=== PATIENT | male | born 1950 | race Caucasian/White ===

== ENCOUNTER 2018-05-10 04:29 | Emergency (ER) | payer MEDICARE, OTHER ==
[~2018-05-10] VITALS: Ht 190.5 cm; Wt 97.5 kg
[2018-05-10 05:02] LABS: BASOPHILS # (AUTO) 0.1 10^3/uL (0.0-0.1); BASOPHILS % (AUTO) 1 % (0-10); EOSINOPHILS # (AUTO) 0.1 10^3/uL (0.0-0.3); EOSINOPHILS % (AUTO) 1 % (0-10); HEMATOCRIT 47 % (40-54); HEMOGLOBIN 16.1 G/DL (13.3-17.7); LYMPHOCYTES # (AUTO) 1.4 X 10^3 (1.0-4.0); LYMPHOCYTES % (AUTO) 15 % (12-44); MEAN CORPUSCULAR HEMOGLOBIN 29 PG (25-34); MEAN CORPUSCULAR HGB CONC 35 G/DL (32-36); MEAN CORPUSCULAR VOLUME 85 FL (80-99); MEAN PLATELET VOLUME 9.8 FL (7.4-10.4); MONOCYTES # (AUTO) 1.1 X 10^3 (0.0-1.0); MONOCYTES % (AUTO) 11 % (0-12); NEUTROPHILS # (AUTO) 6.8 X 10^3 (1.8-7.8); NEUTROPHILS % (AUTO) 72 % (42-75); PLATELET COUNT 250 10^3/uL (130-400); RED CELL DISTRIBUTION WIDTH 13.8 % (10.0-14.5); WHITE BLOOD COUNT 9.3 10^3/uL (4.3-11.0)
[2018-05-10 05:08] LABS: BILIRUBIN,URINE NEGATIVE (NEGATIVE); CLARITY,URINE CLEAR; COLOR,URINE YELLOW; GLUCOSE, URINE (UA) 4+ (NEGATIVE); KETONES,URINE 3+ (NEGATIVE); LEUKOCYTE ESTERASE ,URINE NEGATIVE (NEGATIVE); NITRITE,URINE NEGATIVE (NEGATIVE); PH,URINE 5 (5-9); PROTEIN,URINE 1+ (NEGATIVE); UROBILINOGEN,URINE NORMAL (NORMAL)
[2018-05-10 05:32] LABS: BACTERIA,URINE NEGATIVE /HPF; SQUAMOUS EPITHELIAL CELL,UR RARE /HPF
[2018-05-10 05:37] LABS: ALANINE AMINOTRANSFERASE 81 U/L (0-55); ALBUMIN 4.6 GM/DL (3.2-4.5); ALKALINE PHOSPHATASE 118 U/L (40-136); BILIRUBIN,TOTAL 1.4 MG/DL (0.1-1.0); BUN/CREATININE RATIO 15; CALCIUM 9.9 MG/DL (8.5-10.1); CARBON DIOXIDE 21 MMOL/L (21-32); CHLORIDE 99 MMOL/L (98-107); CREATININE SERUM 0.96 MG/DL (0.60-1.30); GFR ESTIMATED > 60; GLUCOSE 350 MG/DL (70-105); MAGNESIUM 2.1 MG/DL (1.8-2.4); POTASSIUM 4.1 MMOL/L (3.6-5.0); SODIUM 135 MMOL/L (135-145); TOTAL PROTEIN 7.2 GM/DL (6.4-8.2)
[2018-05-10 05:41] LABS: AMPHETAMINE SCREEN, URINE NEGATIVE (NEGATIVE); BARBITURATE SCREEN URINE NEGATIVE (NEGATIVE); BENZODIAZEPINES SCREEN URINE NEGATIVE (NEGATIVE); CANNABINOID SCREEN, URINE NEGATIVE (NEGATIVE); COCAINE SCREEN URINE NEGATIVE (NEGATIVE); METHADONE STAT NEGATIVE (NEGATIVE); METHAMPHETAMINE SCREEN URINE S NEGATIVE (NEGATIVE); OPIATE SCREEN URINE NEGATIVE (NEGATIVE); OXYCODONE STAT NEGATIVE (NEGATIVE); PROPOXYPHENE STAT NEGATIVE (NEGATIVE); TRICYCLIC ANTIDEPRESSANTS SCRE NEGATIVE (NEGATIVE)
[2018-05-10] MEDS ORDERED: RT-ALBUTEROL/IPRATROPIUM 3 ML (DUONEB) VIAL INH ONE (05:45)
[2018-05-10 05:57] LABS: TSH (THYROID ANALYZER) 2.05 UIU/ML (0.35-4.94)
--- NOTE | 2018-05-10 06:00 | ED General ---
General Chief Complaint: Altered Mental Status Stated Complaint: POSSIBLE BLOOD SUGAR ISSUES Nursing Triage Note: Patient was brought in by [facility] to get himself checked out, for possible blood sugar issues. When asking patient questions, he makes a joke or pauses for a second to answer. Pt was broke down on the side of the road when the lead project engineer stopped. Pt thinks he is at [facility], but got age, where he lives and month correct. Pt appeared confused when the officer arrived on scene. Pt is a diabetic and stated the last time he checked his blood sugar was yesterday morning. Nursing Sepsis Screen: No Definite Risk Source of Information: Patient Exam Limitations: No Limitations (ISAIAS DIALLO MD) History of Present Illness Date Seen by Provider: May 10, 2018 Time Seen by Provider: 04:32 Initial Comments This 67-year-old gentleman is brought to the emergency room by a [facility]'s deputy because of confusion. The officer found him pulled over on the side of the road and noted that he was quite confused. The patient is from [place], [place] and thought he was on his way to [place], [place] which [place]. He thought he was in [place] at the moment. His phone is presently not working. Patient has diabetes, heart disease, and hypertension. He is wheezing slightly but denies COPD. He denies any alcohol or drug use. He does know his age and the month but is disoriented to location. When confronted with questions he has difficulty answering, he makes jokes to cover for his confusion. He is ambulatory and does not appear to have any focal neurologic deficits. He does admit to a mild cough recently. He denies any chest pain. (ISAIAS DIALLO MD) Allergies and Home Medications Allergies Coded Allergies: No Known Drug Allergies (Unverified , 05/10/18) Patient Home Medication List Home Medication List Reviewed: Yes (ISAIAS DIALLO MD) Review of Systems Review of Systems Constitutional: no symptoms reported EENTM: no symptoms reported Respiratory: see HPI Cardiovascular: no symptoms reported Gastrointestinal: no symptoms reported Genitourinary: no symptoms reported Musculoskeletal: no symptoms reported Skin: no symptoms reported Psychiatric/Neurological: See HPI Hematologic/Lymphatic: No Symptoms Reported (ISAIAS DIALLO MD) Past Vkjfjmc-Mmyfnv-Owekys Hx Past Med/Social Hx: Reviewed and Corrections made (ISAIAS DIALLO MD) Patient Social History Alcohol Use: Denies Use Recreational Drug Use: No Recent Foreign Travel: No Contact w/Someone Who Travel: No Recent Infectious Disease Expo: No Recent Hopitalizations: No (DENIES) Physical Abuse: No Sexual Abuse: No Mistreated: No Fear: No (ISAIAS DIALLO MD) Seasonal Allergies Seasonal Allergies: No (DENIES) (ISAIAS DIALLO MD) Past Medical History Surgeries: No (DENIES) Respiratory: No (DENIES) Cardiac: Yes Coronary Artery Disease, Hypertension Neurological: No (DENIES) Genitourinary: No (DENIES) Gastrointestinal: No (DENIES) Musculoskeletal: No (DENIES) Endocrine: Yes Diabetes, Non-Insulin dep HEENT: No (DENIES) Cancer: No (DENIES) Psychosocial: No (DENIES) Integumentary: No (DENIES) Blood Disorders: No (DENIES) (ISAIAS DIALLO MD) Physical Exam Vital Signs Vital Signs - First Documented 05/10/18 05/10/18 05:00 05:48 Temp 97.6 Pulse 112 Resp 20 B/P (MAP) 138/88 (105) Pulse Ox 93 O2 Delivery Room Air O2 Flow Rate 2.00 (ESAU WANG) Vital Signs Capillary Refill : Less Than 3 Seconds (ISAIAS DIALLO MD) Height, Weight, BMI Height: 6'3.00" Weight: 215lbs. 0oz. 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 Norm as Tested, Other (disoriented to place) Skin: Normal Color, Warm/Dry (ISAIAS DIALLO MD) Progress/Results/Core Measures Suspected Sepsis Recent Fever Within 48 Hours: No Infection Criteria Present: None New/Unexplained Altered Menta: No Sepsis Screen: No Definite Risk SIRS Temperature:97.6 Pulse: 112 Respiratory Rate: 20 Laboratory Tests 05/10/18 04:53: White Blood Count 9.3 Blood Pressure 138 /88 Mean: 105 Laboratory Tests 05/10/18 04:53: Creatinine 0.96, Platelet Count 250, Total Bilirubin 1.4H (ISAIAS DIALLO MD) Results/Orders Lab Results Laboratory Tests Test 05/10/18 04:37 05/10/18 04:53 05/10/18 05:00 05/10/18 08:47 Range/Units Glucometer 305 H 313 H 70-110 MG/DL White Blood Count 9.3 4.3-11.0 10^3/uL Red Blood Count 5.48 4.35-5.85 10^6/uL Hemoglobin 16.1 13.3-17.7 G/DL Hematocrit 47 40-54 % Mean Corpuscular Volume 85 80-99 FL Mean Corpuscular Hemoglobin 29 25-34 PG Mean Corpuscular Hemoglobin Concent 35 32-36 G/DL Red Cell Distribution Width 13.8 10.0-14.5 % Platelet Count 250 130-400 10^3/uL Mean Platelet Volume 9.8 7.4-10.4 FL Neutrophils (%) (Auto) 72 42-75 % Lymphocytes (%) (Auto) 15 12-44 % Monocytes (%) (Auto) 11 0-12 % Eosinophils (%) (Auto) 1 0-10 % Basophils (%) (Auto) 1 0-10 % Neutrophils # (Auto) 6.8 1.8-7.8 X 10^3 Lymphocytes # (Auto) 1.4 1.0-4.0 X 10^3 Monocytes # (Auto) 1.1 H 0.0-1.0 X 10^3 Eosinophils # (Auto) 0.1 0.0-0.3 10^3/uL Basophils # (Auto) 0.1 0.0-0.1 10^3/uL D-Dimer 0.37 0.00-0.49 UG/ML Sodium Level 135 135-145 MMOL/L Potassium Level 4.1 3.6-5.0 MMOL/L Chloride Level 99 98-107 MMOL/L Carbon Dioxide Level 21 21-32 MMOL/L Anion Gap 15 H 5-14 MMOL/L Blood Urea Nitrogen 14 7-18 MG/DL Creatinine 0.96 0.60-1.30 MG/DL Estimat Glomerular Filtration Rate > 60 BUN/Creatinine Ratio 15 Glucose Level 350 H 70-105 MG/DL Calcium Level 9.9 8.5-10.1 MG/DL Corrected Calcium 8.5-10.1 MG/DL Magnesium Level 2.1 1.8-2.4 MG/DL Total Bilirubin 1.4 H 0.1-1.0 MG/DL Aspartate Amino Transf (AST/SGOT) 41 H 5-34 U/L Alanine Aminotransferase (ALT/SGPT) 81 H 0-55 U/L Alkaline Phosphatase 118 40-136 U/L Troponin I < 0.028 <0.028 NG/ML B-Type Natriuretic Peptide < 10.0 <100.0 PG/ML Total Protein 7.2 6.4-8.2 GM/DL Albumin 4.6 H 3.2-4.5 GM/DL TSH [place] Testing 2.05 0.35-4.94 UIU/ML Serum Alcohol < 10 <10 MG/DL Urine Color YELLOW Urine Clarity CLEAR Urine pH 5 5-9 Urine Specific [place] 1.020 1.016-1.022 Urine Protein 1+ H NEGATIVE Urine Glucose (UA) 4+ H NEGATIVE Urine Ketones 3+ H NEGATIVE Urine Nitrite NEGATIVE NEGATIVE Urine Bilirubin NEGATIVE NEGATIVE Urine Urobilinogen NORMAL NORMAL MG/DL Urine Leukocyte Esterase NEGATIVE NEGATIVE Urine RBC (Auto) NEGATIVE NEGATIVE Urine RBC NONE /HPF Urine WBC NONE /HPF Urine Squamous Epithelial Cells RARE /HPF Urine Crystals NONE /LPF Urine Bacteria NEGATIVE /HPF Urine Casts NONE /LPF Urine Mucus NEGATIVE /LPF Urine Culture Indicated NO Urine Opiates Screen NEGATIVE NEGATIVE Urine Oxycodone Screen NEGATIVE NEGATIVE Urine Methadone Screen NEGATIVE NEGATIVE Urine Propoxyphene Screen NEGATIVE NEGATIVE Urine Barbiturates Screen NEGATIVE NEGATIVE Ur Tricyclic Antidepressants Screen NEGATIVE NEGATIVE Urine Phencyclidine Screen NEGATIVE NEGATIVE Urine Amphetamines Screen NEGATIVE NEGATIVE Urine Methamphetamines Screen NEGATIVE NEGATIVE Urine Benzodiazepines Screen NEGATIVE NEGATIVE Urine Cocaine Screen NEGATIVE NEGATIVE Urine Cannabinoids Screen NEGATIVE NEGATIVE (ESAU WANG) Micro Results Microbiology 05/10/18 Influenza Types A,B Antigen (DENISE) - Final, Complete (ESAU WANG) My Orders Orders - ESAU WANG Cho 60g/M 3snack (16-2000 Rivas) (05/10/18 Breakfast) Insulin (Regular) Human (Humulin R (Per (05/10/18 07:15) Accucheck Stat ONCE (05/10/18 08:00) Ct Head Wo (05/10/18 07:38) Influenza A And B Antigens (05/10/18 07:42) (ESAU WANG) Medications Given in ED Current Medications Medications Dose Ordered Sig/Kristian Route Start Time Stop Time Status Last Admin Dose Admin Albuterol/ Ipratropium 3 ml ONCE ONCE INH 05/10/18 05:45 05/10/18 05:46 DC 05/10/18 05:48 3 ML Insulin Human Regular 7 unit ONCE ONCE SC 05/10/18 07:15 05/10/18 07:16 DC 05/10/18 07:22 7 UNIT (ESAU WANG) Vital Signs/I&O 05/10/18 05/10/18 05:00 05:48 Temp 97.6 Pulse 112 Resp 20 B/P (MAP) 138/88 (105) Pulse Ox 93 94 O2 Delivery Room Air Nasal Cannula O2 Flow Rate 2.00 (ESAU WANG) Vital Signs/I&O Capillary Refill : Less Than 3 Seconds (ISAIAS DIALLO MD) Blood Pressure Mean: 105 Point of Care Testing Finger Stick Blood Glucose: 305 Blood Glucose Action Taken: Provider notified (ISAIAS DIALLO MD) Progress Note : Time: 06:02 Progress Note Labs were reviewed. Patient is hyperglycemic but does not appear to have any other major lab abnormalities. He was found to be hypoxic while sitting in the room with oxygen saturations as low as 88 percent with a good waveform. A DuoNeb treatment has been ordered and x-rays will be ordered to follow. (ISAIAS DIALLO MD) Progress Note #1: Time: 06:23 Progress Note Assumed care of the patient at shift change. He is resting comfortably and alert but not oriented to place time or situation. He says is from [place] on his way back home. He states that home is [place]. When asked questions that he does not know the answer to he smiles, tells a joke, or deflects. Suspect Dementia. [facility] was working on getting hold of the sons of the patient however they explained that they were unable to make contact as of the last time we spoke with them. Because of her tachycardia and relative hypoxia into the upper 80s and EKG, d-dimer and troponin were ordered. The patient does have a history of a stent. He is expressing no discomfort at this time. Progress Note #2: Time: 08:44 Progress Note Patient's had his breakfast since some insulin. He does not take insulin at baseline. We'll recheck his sugar. His heart rate has remained around the 100 210 with oxygen sats in the 90-94% range on room air. He is not having any complaints except for a nonproductive cough for the last several days. Flu was negative. No evidence of a pneumonia. He could be having some bronchitis. He does not have any wheezing or crackling on auscultation. He did receive a DuoNeb but he denies it made any difference after the breathing treatment. He denies any history of COPD or asthma and his friend who is here with him says that she will see that he gets home if he is medically cleared. I suspect he might have bronchitis but it's likely viral. Adding antibiotics with no leukocytosis, fever or productive cough would probably just add to his milieu of delirium. The friend says this is an acute change in his mentation but she's not seen him for the past month. We have suggested that she get him home to his family and that they take him to his primary care doctor for reevaluation this week. He is not to drive. Returning home would probably be the best thing for his delirium. We have ERRED on observation status since he has a ride home to his family and his family doctor this would probably be a better option and this is what he has elected to do. Progress Note #3: Time: 10:59 Progress Note The friend of the family does not take the patient home has recovered the truck and return to the hospital to pick him up. We've explained that he needs to follow up with primary care and he says he can usually get an the same week. (ESAU WANG) ECG Initial ECG Impression Date: May 10, 2018 Initial ECG Impression Time: 06:11 Initial ECG Rate: 100 Initial ECG Rhythm: S.Tach Initial ECG Intervals: Normal Initial ECG Impression: Normal Initial ECG Comparisson: No Previous ECG Available Comment No ST elevation or depression. (ESAU WANG) Diagnostic Imaging Diagonstic Imaging: Xray Plain Films/CT/US/NM/MRI: chest (2v) Comments Implanted loop recorder. No acute cardiopulmonary process noted on a 2 view chest x-ray. [facility] [place] NAME: NICKI ADAMS [facility] REC#: [id number] PT STATUS: REG ER : 1950 PHYSICIAN: ISAIAS DIALLO MD ADMIT DATE: 05/10/18/ER Draft Date of Exam:05/10/18 CHEST PA/LAT (2 VIEW) INDICATION: Chest pain. Altered mental status. Diabetic. FINDINGS: PA and lateral chest. The lungs are well-aerated and clear. The heart is not enlarged. There is no pulmonary edema. No pneumothorax or pleural effusions. IMPRESSION: Normal PA and lateral chest. Dictated on workstation # [id number] Dict: 05/10/18 0737 Trans: 05/10/18 0740 TAMIKO [id number] Interpreted by: CHALINO ROSENBERG MD Electronically signed by: Reviewed: Reviewed by Me Diagonstic Imaging: CT (without contrast) Plain Films/CT/US/NM/MRI: head Comments [facility] [place] NAME: NICKI ADAMS [facility] REC#: [id number] PT STATUS: REG ER : 1950 PHYSICIAN: ESAU WANG MD ADMIT DATE: 05/10/18/ER Draft Date of Exam:05/10/18 CT HEAD WO PROCEDURE: CT head without contrast. TECHNIQUE: Multiple contiguous axial images were obtained through the brain without the use of intravenous contrast. INDICATION: Disorientation. COMPARISON: No prior studies are available for comparison. FINDINGS: Ventricles are somewhat prominent for the patient's age suggestive of cerebral volume loss. Mild periventricular hypodensity is noted consistent with changes of chronic microvascular ischemia. No sulcal effacement is identified. There is no midline shift. No acute intra-axial or extra-axial hemorrhage is identified. The cisterns are patent. Visualized paranasal sinuses demonstrate some mucosal thickening involving multiple ethmoid air cells. The frontal, bilateral maxillary and sphenoid sinuses are clear. The mastoids are well aerated. IMPRESSION: Mild cerebral atrophy and changes of chronic microvascular ischemia. No acute intracranial process is detected. Dictated on workstation # [id number] Dict: 05/10/18821 Trans: 05/10/18825 DYLAN [id number] Interpreted by: PATSY SOW MD Electronically signed by: Reviewed: Reviewed by Me (ESAU WANG) Departure Impression Primary Impression: Bronchitis Additional Impressions: Delirium Hypoxia Disposition: 01 HOME, SELF-CARE Condition: Stable Departure-Patient Inst. Decision time for Depature: 08:59 (ESAU WANG) Referrals: NO,LOCAL PHYSICIAN (PCP/Family) Primary Care Physician Patient Instructions: Acute Bronchitis in Adults, Delirium (Confusion) (DC) Add. Discharge Instructions: Return home and stay with family. Do not drive. Follow up with your primary care doctor this week if possible. Use humidifiers, vapor rubs and [id number] cough remedies as necessary for your symptoms. If you begin to have chest pain, worsening shortness of breath or other concerning symptoms return to your doctor or the nearest ER. All discharge instructions reviewed with patient and/or family. Voiced understanding. ISAIAS DIALLO MD May 10, 2018 06:00 ESAU WANG May 10, 2018 06:39
[2018-05-10] MEDS ORDERED: inSUlin (REGULAR) HUMAN 1 UNIT/0.01 ML (CHARGE PER UNIT) SC ONE (07:15)
--- NOTE | 2018-05-10 07:22 | NUR ---
FRIEND OF PATIENT HERE . FOOD TRAY ORDERED. [facility] DEPARTMENT CALLED TO FIND OUT WHERE KEYS ARE TO TRUCK.
--- NOTE | 2018-05-10 07:40 | Diagnostic Imaging Report ---
INDICATION: Chest pain. Altered mental status. Diabetic. FINDINGS: PA and lateral chest. The lungs are well-aerated and clear. The heart is not enlarged. There is no pulmonary edema. No pneumothorax or pleural effusions. IMPRESSION: Normal PA and lateral chest. Dictated by: Dictated on workstation # [id number]
--- NOTE | 2018-05-10 07:49 | NUR ---
FOOD TRAY GIVEN
--- NOTE | 2018-05-10 08:10 | NUR ---
TO CT PER W/C
--- NOTE | 2018-05-10 08:27 | Diagnostic Imaging Report ---
PROCEDURE: CT head without contrast. TECHNIQUE: Multiple contiguous axial images were obtained through the brain without the use of intravenous contrast. INDICATION: Disorientation. COMPARISON: No prior studies are available for comparison. FINDINGS: Ventricles are somewhat prominent for the patient's age suggestive of cerebral volume loss. Mild periventricular hypodensity is noted consistent with changes of chronic microvascular ischemia. No sulcal effacement is identified. There is no midline shift. No acute intra-axial or extra-axial hemorrhage is identified. The cisterns are patent. Visualized paranasal sinuses demonstrate some mucosal thickening involving multiple ethmoid air cells. The frontal, bilateral maxillary and sphenoid sinuses are clear. The mastoids are well aerated. IMPRESSION: Mild cerebral atrophy and changes of chronic microvascular ischemia. No acute intracranial process is detected. Dictated by: Dictated on workstation # [id number]
--- NOTE | 2018-05-10 09:51 | NUR ---
WAITNG FOR FRIEND TO RETURN TO TAKE HIM HOME.
--- NOTE | 2018-05-10 11:05 | NUR ---
DISCHARGE [facility] FEMALE FRIEND
[2018-05-10 11:10] VITALS: BP 155/82
== END 2018-05-10 11:09 | disposition home or self-care (01) ==
LOC: ER 04:32
DX: J40 Bronchitis, not specified as acute or chronic (principal); R07.9 Chest pain, unspecified; R41.0 Disorientation, unspecified; E11.9 Type 2 diabetes mellitus without complications; I10 Essential (primary) hypertension; I25.10 Atherosclerotic heart disease of native coronary artery without angina pectoris
CPT/HCPCS: 36415; 70450; 71046; 80053; 80306; 80320; 81000; 82962; 83735; 83880; 84443; 84484; 85025; 85379; 87804; 93005; 94640